=== PATIENT | male | born 2000 | race Caucasian/White ===

== ENCOUNTER 2025-03-21 06:19 | Day surgery (SDC) | payer OTHER, SELFPAY | END 2025-03-21 14:21 | disposition home or self-care (01) | LOC: GI 06:19 | PROVIDERS: ATTENDING PHYSICIAN Internal Medicine | DX: K52.9 Noninfective gastroenteritis and colitis, unspecified (principal); R59.9 Enlarged lymph nodes, unspecified; K63.89 Other specified diseases of intestine; K21.00 Gastro-esophageal reflux disease with esophagitis, without bleeding; K29.70 Gastritis, unspecified, without bleeding; K90.0 Celiac disease; K29.50 Unspecified chronic gastritis without bleeding; K31.89 Other diseases of stomach and duodenum | CPT/HCPCS: 45380; 43239; 88305; 88342 ==